=== PATIENT | male | born 1950 | race African-American/Black ===

== ENCOUNTER 2016-08-08 10:39 | Outpatient (CLI) | payer MEDICARE, BC | END 2016-08-08 10:40 | disposition home or self-care (01) | DX: R10.11 Right upper quadrant pain (principal) ==

== ENCOUNTER 2016-08-12 18:58 | Outpatient (CLI) | payer MEDICARE, BC | END 2016-08-12 18:59 | disposition home or self-care (01) | DX: R10.11 Right upper quadrant pain (principal) ==

== ENCOUNTER 2016-08-20 07:11 | Outpatient (CLI) | payer MEDICARE, BC ==
[2016-08-20] MEDS ORDERED: IOPAMIDOL-300 100 ML VIAL IVP ONE (08:11)
--- NOTE | 2016-08-20 16:09 | CT Report ---
CT OF THE ABDOMEN WITH AND WITHOUT CONTRAST: 08/20/2016 CLINICAL INDICATION: Pain, abnormal lipase. TECHNIQUE: Axial CT images of the abdomen were obtained prior to and following 50 mL of Isovue-300 in travenously (renal dysfunction), with imaging obtained in arterial and portovenous phases. No previou s CT is available for comparison. FINDINGS: Limited evaluation of the lung bases is unremarkable. ABDOMEN: On the unenhanced images, there is no evidence of pancreatic calcifications. The pancreas de monstrates homogeneous arterial enhancement and no evidence of mass lesion on arterial or portovenous phases. No surrounding inflammation is seen. No fluid collection is appreciated. The liver demonstra supriya cysts. Cortical cysts are seen in the kidneys. No hydronephrosis or nephrolithiasis is appreciate d. The spleen and adrenal glands appear unremarkable. The gallbladder is not dilated. No bowel dilata tion, free gas, or free fluid is appreciated. The osseous structures demonstrate degenerative changes . No abdominal adenopathy is seen. IMPRESSION: NO EVIDENCE OF PANCREATIC MASS OR PANCREATITIS. INCIDENTAL HEPATIC AND RENAL CYSTS. In accordance with CT protocol optimization, one or more of the following dose reduction techniques w ere utilized for this exam: automated exposure control, adjustment of mA and/or KV based on patient size, or use of iterative reconstructive technique. JOB #: [id number] EXT JOB #:[id number]
== END 2016-08-20 07:12 | disposition home or self-care (01) ==
LOC: DI 07:11
PROVIDERS: ATTEND Internal Medicine
DX: R10.84 Generalized abdominal pain (principal); R74.8 Abnormal levels of other serum enzymes
CPT/HCPCS: 74170; Q9967

== ENCOUNTER 2016-08-26 09:33 | Outpatient (CLI) | payer MEDICARE, BC | END 2016-08-26 09:34 | disposition home or self-care (01) | LOC: LAB.N 09:33 | PROVIDERS: ATTEND Internal Medicine | DX: R74.8 Abnormal levels of other serum enzymes (principal) | CPT/HCPCS: 36415; 83690 ==

== ENCOUNTER 2018-01-04 11:44 | Outpatient (CLI) | payer MEDICARE, OTHER ==
--- NOTE | 2018-01-04 13:10 | Ultrasound Report ---
Reason: AMAUROSIS FUGAX Procedure Date: 01/04/2018 Accession Number: [id number] / [id number] Procedure: US - Carotid Doppler Complete CPT Code: FULL RESULT: EXAM: BILATERAL CAROTID AND VERTEBRAL ARTERY DUPLEX DOPPLER ULTRASOUND: EXAM DATE: 01/04/2018 11:59 AM CLINICAL HISTORY: Amaurosis fugax. COMPARISON: None. TECHNIQUE: Grayscale imaging, color Doppler, and duplex spectral Doppler were used to evaluate the carotid and vertebral arteries bilaterally. Static images were obtained. FINDINGS: Subjectively there is intimal thickening and less than 50% luminal narrowing by hypoechoic plaque in the right carotid system predominantly in the bulb region as well as in the internal carotid artery distally. Shadowing atherosclerotic plaque is seen in the proximal external carotid artery on the right with normal waveforms downstream. The left carotid system demonstrates less than 50% hypoechoic plaque subjectively in the bulb region. Normal antegrade flow is present in bilateral vertebral arteries. VELOCITIES (cm/sec): Right CCA Mid: PSV 109 cm/sec CCA Dist: PSV 88 cm/sec ICA Prox: PSV 81 cm/sec, EDV 9 cm/sec ICA Mid: PSV 90 cm/sec, EDV 19 cm/sec ICA Dist: PSV 77 cm/sec, EDV 17 cm/sec ECA: PSV 111 cm/sec Vert: PSV 40 cm/sec ICA/CCA: 0.82 Left CCA Mid: PSV 122 cm/sec CCA Dist: PSV 85 cm/sec ICA Prox: PSV 62 cm/sec, EDV 12 cm/sec ICA Mid: PSV 71 cm/sec, EDV 15 cm/sec ICA Dist: PSV 53 cm/sec, EDV 15 cm/sec ECA: PSV 87 cm/sec Vert: PSV 104 cm/sec ICA/CCA: 0.58 ICA diameter stenosis: Right: <50% by velocity and <70% by NASCET criteria. Left: <50% by velocity and <70% by NASCET criteria. IMPRESSION: 1. No significant bilateral carotid artery plaquing. 2. In the right carotid artery there are no elevated carotid artery velocities to suggest hemodynamically significant stenosis. 3. In the left carotid artery there are no elevated carotid artery velocities to suggest hemodynamically significant stenosis. 4. Normal antegrade flow is present in bilateral vertebral arteries. General Recommendations: Stenosis =50% ICA - Follow-up ultrasound 6-12 months Stenosis <50% ICA - High Risk Patient with plaque - Follow-up ultrasound 1-2 years Normal Study but High Risk Patient - Follow-up ultrasound 3-5 years Management recommendations and diagnostic criteria are based on current IAC endorsed standards in Carotid Artery Stenosis: Grayscale and Doppler Ultrasound Diagnosis. Validated velocity measurements with angiographic measurements and velocity criteria are extrapolated from diameter data as defined by the Society of Radiologists in Ultrasound Consensus Conference Radiology 2003; 229;340-346. RADIA
[2018-01-04 13:53] LABS: BASOPHILS # (AUTO) 0.1 10^3/uL (0.0-0.1); BASOPHILS % (AUTO) 1.2 %; EOSINOPHILS % (AUTO) 0.6 %; HGB - HEMOGLOBIN 12.2 g/dL (14.0-18.0); LYMPHOCYTES # (AUTO) 1.1 10^3/uL (1.5-3.5); LYMPHOCYTES % (AUTO) 15.7 %; MEAN CORPUSCULAR HEMOGLOBIN 32.7 pg (27.0-31.0); MEAN CORPUSCULAR HGB CONC 33.9 g/dL (32.0-36.0); MEAN CORPUSCULAR VOLUME 96.5 fL (80.0-94.0); MEAN PLATELET VOLUME 7.1 fL (7.4-11.4); MONOCYTES # (AUTO) 0.6 10^3/uL (0.0-1.0); MONOCYTES % (AUTO) 8.2 %; NEUTROPHILS # (AUTO) 5.4 10^3/uL (1.5-6.6); NEUTROPHILS % (AUTO) 74.3 %; PLT - PLATELET COUNT 320 10^3/uL (130-450); RED BLOOD COUNT 3.74 10^6/uL (4.70-6.10); RED CELL DISTRIBUTION WIDTH 12.9 % (12.0-15.0); WHITE BLOOD COUNT 7.2 x10^3/uL (4.8-10.8)
== END 2018-01-04 11:45 | disposition home or self-care (01) ==
LOC: DI 11:44
PROVIDERS: ATTEND Ophthalmology
DX: G45.3 Amaurosis fugax (principal); I51.7 Cardiomegaly
CPT/HCPCS: 36415; 85025; 85651; 86140; 93306; 93880

== ENCOUNTER 2018-01-28 08:09 | Outpatient (CLI) | payer MEDICARE, OTHER ==
[2018-01-28] MEDS ORDERED: IOPAMIDOL-300 100 ML VIAL ONE (08:31)
--- NOTE | 2018-01-28 09:34 | CT Report ---
Reason: RETINAL ARTERY EMBOLUS Procedure Date: 01/28/2018 Accession Number: [id number] / [id number] Procedure: CT - Neck Angio CPT Code: FULL RESULT: EXAM: CT ANGIOGRAM NECK EXAM DATE: 01/28/2018 09:04 AM. CLINICAL HISTORY: 67-year-old man with retinal artery embolus. COMPARISON: None. TECHNIQUE: Routine axial helical imaging was performed from the skull base through the aortic arch. Reconstructions: Routine multiplanar 3D MIP reconstructions. IV Contrast: ISOVUE 300 80mL. Evaluation of arterial stenosis is based on a NASCET method of measurement. In accordance with CT protocol optimization, one or more of the following dose reduction techniques were utilized for this exam: automated exposure control, adjustment of mA and/or KV based on patient size, or use of iterative reconstructive technique. FINDINGS: RIGHT: - Common and Internal Carotid: Patent without signficant stenosis. There is calcified atherosclerotic plaque at the bifurcation. Stenosis by NASCET criteria: Less than 50%. No evidence of dissection. No evidence of aneurysm along intracranial ICA. - External Carotid: Unremarkable. - Vertebral: Patent without significant stenosis. No evidence of dissection. LEFT: - Common and Internal Carotid: Patent without signficant stenosis. There is calcified atherosclerotic plaque at the bifurcation. Stenosis by NASCET criteria: Less than 50%. No evidence of dissection. No evidence of aneurysm along intracranial ICA. - External Carotid: Unremarkable. - Vertebral: Patent without significant stenosis. No evidence of dissection. SOFT TISSUES AND BONES: Visualized soft tissues are unremarkable. Lung apices are clear. No evidence of acute fracture or malalignment of the cervical spine, but multilevel degenerative changes are present. IMPRESSION: 1. Atherosclerotic plaque is present along the carotid bifurcations bilaterally, but stenosis is less than 50% by NASCET criteria. 2. Vertebral arteries are patent without significant stenosis. RADIA
--- NOTE | 2018-01-28 09:39 | CT Report ---
Reason: RETINAL ARTERY EMBOLUS Procedure Date: 01/28/2018 Accession Number: [id number] / [id number] Procedure: CT - Head Angio CPT Code: FULL RESULT: EXAM: CT ANGIOGRAM HEAD. CT SCAN OF THE HEAD WITHOUT CONTRAST. EXAM DATE: 01/28/2018 09:04 AM CLINICAL HISTORY: 67-year-old man with retinal artery embolus. COMPARISON: None. TECHNIQUE: - CT Scan Head: Using a multidetector scanner, axial images were acquired from the foramen magnum to the skull vertex prior to contrast administration. - CT Angiogram: Using a multidetector scanner, high-resolution axial images were acquired from the skull base through vertex following rapid infusion of intravenous contrast. Reformats: Multiplanar MIP reformats were reconstructed. Nascet criteria used for stenosis measurement. IV Contrast: ISOVUE 300 80mL. In accordance with CT protocol optimization, one or more of the following dose reduction techniques were utilized for this exam: automated exposure control, adjustment of mA and/or KV based on patient size, or use of iterative reconstructive technique. FINDINGS: NONCONTRAST HEAD: Parenchyma: No evidence of acute infarct, hemorrhage, or mass lesion. Parenchyma demonstrates normal attenuation characteristics. Ventricles and Extra-axial Spaces: Ventricles are symmetric and normal in size for age. No extra-axial hemorrhage or fluid collection. Orbits: Unremarkable. Sinuses: Paranasal sinuses and mastoid air cells are clear. Extracranial Soft Tissues and Bones: Soft tissues are unremarkable. No fractures. CTA HEAD: RIGHT: - Visualized Internal Carotid: Patent without significant stenosis or aneurysm. There is mild atherosclerotic plaque along the siphon. - Anterior Cerebral: Patent without significant stenosis or aneurysm. - Middle Cerebral: Patent without significant stenosis or aneurysm. - Posterior Cerebral: Patent without significant stenosis or aneurysm. - Posterior Communicating: Not well seen. - Visualized Vertebral: Patent without significant stenosis or dissection. LEFT: - Visualized Internal Carotid: Patent without significant stenosis or aneurysm. There is mild atherosclerotic plaque along the siphon. - Anterior Cerebral: Patent without significant stenosis or aneurysm. - Middle Cerebral: Patent without significant stenosis or aneurysm. - Posterior Cerebral: Patent without significant stenosis or aneurysm. - Posterior Communicating: Not well seen. - Visualized Vertebral: Patent without significant stenosis or dissection. CENTRAL: - Anterior Communicating: Patent. No aneurysm. - Basilar: Patent without significant stenosis, dissection, or aneurysm. Dural Venous Sinuses and Major Central Veins: Patent. IMPRESSION: CT Head: 1. No acute intracranial abnormality. Specifically, no evidence of acute infarct, hemorrhage, or mass lesion. CTA Head: 1. No large vessel occlusion, significant vascular stenosis, or aneurysm. RADIA
[2018-01-28] MEDS ORDERED: IOPAMIDOL-300 100 ML VIAL IVP ONE (14:39)
== END 2018-01-28 08:10 | disposition home or self-care (01) ==
LOC: DI 08:09
PROVIDERS: ATTEND Internal Medicine
DX: H34.9 Unspecified retinal vascular occlusion (principal); I65.23 Occlusion and stenosis of bilateral carotid arteries
CPT/HCPCS: 70496; 70498; Q9967

== ENCOUNTER 2020-02-21 18:38 | Outpatient (CLI) | payer MEDICARE, BC ==
--- NOTE | 2020-02-22 15:47 | Ultrasound Report ---
PROCEDURE: Retroperitoneal INDICATIONS: ACUTE KINDEY INJURY TECHNIQUE: Real-time scanning was performed of the retroperitoneal organs, with image documentation. COMPARISON: CT abdomen pelvis 08/20/2016, renal ultrasound 09/28/2006, 10/20/2007 FINDINGS: Kidneys: Kidneys are normal in size. Right kidney measures 11.9 cm long; left kidney measures 1.1 c m long. Right renal cortical thickness is 1.9 cm; left renal cortical thickness is 1.5 cm. No solid masses, hydronephrosis, or nephrolithiasis. Multifocal areas of low echogenicity are identified wit hin the kidneys bilaterally. Overall, they appear unchanged. It is noted within the left kidney there are 2 foci appearing to demonstrate heterogeneous echogenicity measuring 20 x 16 x 17 mm and 16 x 12 x 13 mm. They do not demonstrate increased vascularity. Bladder: Prevoid volume 3 29 cc. Postvoid residual 69 cc. Bilateral ureteral jets are identified. No masses are identified in the bladder. IMPRESSION: 1. Multifocal simple cysts within the kidneys appearing overall stable compared to prior exam. As not ed above, there are two complex foci identified without increased vascularity. These appear most sugg estive of complex cyst. 6 month interval ultrasound follow-up is recommended to document stability. Reviewed by: Nona Noyola MD on 02/22/2020 3:45 PM PST Approved by: Nona Noyola MD on 02/22/2020 3:45 PM PST Station ID: [id number]
== END 2020-02-21 18:39 | disposition home or self-care (01) ==
LOC: DI 18:38
PROVIDERS: ATTEND Internal Medicine Nephrology
DX: N17.9 Acute kidney failure, unspecified (principal); N28.1 Cyst of kidney, acquired
CPT/HCPCS: 76770

== ENCOUNTER 2021-10-21 16:17 | Outpatient (CLI) | payer MEDICARE, BC ==
--- NOTE | 2021-10-22 10:51 | Ultrasound Report ---
PROCEDURE: Retroperitoneal INDICATIONS: ACUTE KIDNEY FAILURE TECHNIQUE: Real-time scanning was performed of the retroperitoneal organs, with image documentation. COMPARISON: Renal ultrasound 02/21/2020. CT 08/20/2016. FINDINGS: Kidneys: Kidneys are normal in size. Right kidney measures 11.0 cm long; left kidney measures 11.0 cm long. Right renal cortical thickness is 1.7 cm; left renal cortical thickness is 1.3 cm. Both kid neys appear echogenic. No stones visualized. No hydronephrosis. Multiple simple appearing cortical cy sts are present in the right kidney as before. In the left kidney, there are 2 small structures which are indeterminate for solid masses or complex cyst. One at the upper kidney measures 1.7 x 1.6 x 1.7 cm. The other is at the upper-mid kidney measuring 1.8 x 1.4 x 1.9 cm. These may correspond to the p reviously demonstrated indeterminate left renal lesions but comparison is difficult. Bladder: Pre-void bladder volume is 372 mL. Post-void residual is 63 mL. Pre-void images demonstra te no intraluminal masses or stones. On pre-void images, both ureteral jets are noted with color Dop pler interrogation. (Of note, ureteral jets may not be detectable in up to 25% of cases due to insuf ficient differences in specific gravity between ureteral and bladder urine). Miscellaneous: No free abdominal fluid. IMPRESSION: 1. No hydronephrosis. 2. Both kidneys appear echogenic, a finding that can be seen in the setting of medical renal disease. 3. Postvoid residual urinary bladder volume of 63 mL. 4. Two small indeterminate structures are present in the left kidney, unclear if these represent comp jesusita cysts versus solid masses. Characterization with renal protocol MRI may be helpful. Otherwise, at tention on follow-up exams is recommended, could consider an interval of 3-6 months or at clinical di scretion. Reviewed by: Pranay Whitmore MD on 10/22/2021 10:50 AM PDT Approved by: Pranay Whitmore MD on 10/22/2021 10:50 AM PDT Station ID: [id number]
== END 2021-10-21 16:18 | disposition home or self-care (01) ==
LOC: DI 16:17
PROVIDERS: ATTEND Internal Medicine Nephrology
DX: N17.9 Acute kidney failure, unspecified (principal); N28.1 Cyst of kidney, acquired